=== PATIENT | male | born 1945 | race Caucasian/White ===

== ENCOUNTER 2020-02-01 15:16 | Outpatient (CLI) | payer MEDICARE, OTHER ==
--- NOTE | 2020-02-01 16:03 | XRAY Report ---
PROCEDURE: Shoulder 3 View LT INDICATIONS: LEFT SHOULDER PAIN TECHNIQUE: 3 views of the shoulder were acquired. COMPARISON: None. FINDINGS: Bones: No fractures or dislocations. No suspicious bony lesions. Visualized ribs appear intact. Se samantha degenerative arthritis of the glenohumeral joint with severe joint space loss and large osteophy te. Soft tissues: No suspicious soft tissue calcifications. 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 Reviewed by: Miguel Caballero MD on 02/01/2020 4:01 PM PDT Approved by: Miguel Caballero MD on 02/01/2020 4:01 PM PDT Station ID: [id number]
== END 2020-02-01 15:17 | disposition home or self-care (01) ==
LOC: DI 15:16
PROVIDERS: ATTEND Internal Medicine
DX: M19.012 Primary osteoarthritis, left shoulder (principal)

== ENCOUNTER 2020-02-26 12:42 | Outpatient (CLI) | payer MEDICARE, OTHER ==
--- NOTE | 2020-02-26 16:41 | XRAY Report ---
PROCEDURE: Hip w/Pelvis 2-3V LT INDICATIONS: LT HIP PAIN TECHNIQUE: AP pelvis with lateral view(s) of the left hip(s). COMPARISON: None. FINDINGS: Bones: No fractures or dislocations. Pelvic ring appears intact. No suspicious bony lesions. Bila teral hip arthroplasties are present. Hardware is intact without evidence of periprosthetic loosening or hardware failure. Soft tissues: The visualized bowel gas pattern is normal. No suspicious soft tissue calcifications. IMPRESSION: Bilateral hip arthroplasties as above. Reviewed by: Camila Mccurdy MD on 02/26/2020 4:40 PM PST Approved by: Camila Mccurdy MD on 02/26/2020 4:40 PM PST Station ID: [id number]
== END 2020-02-26 12:43 | disposition home or self-care (01) ==
LOC: DI.N 12:42
PROVIDERS: ATTEND Internal Medicine
DX: M25.552 Pain in left hip (principal); M25.512 Pain in left shoulder; Z96.643 Presence of artificial hip joint, bilateral